=== PATIENT | male | born 1965 | race Caucasian/White ===

== ENCOUNTER 2021-05-25 09:49 | Emergency (ER) | payer OTHER, SELFPAY ==
[2021-05-25 10:27] LABS: Absolute Lymphocytes (CBC) 1.4 K/uL (0.7-4.9); Hematocrit 52.2 % (39.6-49.0); Lymphocytes % 12.3 % (15.3-44.8); RBC Red Blood Cell Count 5.72 M/uL (4.33-5.43)
[2021-05-25] MEDS ORDERED: MORPHINE 4 MG/ML SYR ONE (10:47)
[2021-05-25] MEDS ORDERED: ONDANSETRON 4 MG/2 ML VIAL ONE (10:47)
[2021-05-25 10:51] LABS: Magnesium 2.5 mg/dL (1.8-2.4); Potassium 4.2 mmol/L (3.5-5.1); Troponin High Sensitivity 7.2 pg/mL (<58.9)
--- NOTE | 2021-05-25 12:05 | RAD REPORT ---
EXAM DESCRIPTION: CTChest Abd Pelvis Wo Con - 05/25/2021 11:54 am CLINICAL HISTORY: chest pain, abd pain, back pain, HTN COMPARISON: No comparisons TECHNIQUE: CT of the chest, abdomen, and pelvis was performed. All CT scans are performed using dose optimization technique as appropriate and may include automated exposure control or mA/KV adjustment according to patient size. FINDINGS: Thorax: Chest Wall: No abnormal mass Lungs: Tiny ground-glass opacity in the left lower lobe of doubtful clinical significance. Small nodu lar focus in the left lower lobe measuring 14 millimeters. This is also doubtful acute clinical signi ficance. Pleura: No effusions or pneumothorax. Clara/Mediastinum: No lymphadenopathy. Mild circumferential thickening of the esophagus suggesting gas troesophageal reflux disease. Aorta/Pulmonary Arteries: Unremarkable Heart: Normal size. Abdomen/Pelvis: Liver: No acute abnormality or suspicious lesions. Biliary: No biliary ductal dilatation. Stomach: No significant focal abnormality. Duodenum: No significant focal abnormality. Pancreas: No significant abnormality. Spleen: No significant abnormality. Adrenal: No suspicious lesions. Kidney/ureter: No hydronephrosis. Nonobstructing stones in the right kidney. Too small to characteriz e and/or benign appearing renal lesions are noted. Renal sinus cysts is well. Retroperitoneum: No retroperitoneal adenopathy. Vascular: No aneurysm. Atherosclerosis Bowel: No significant focal abnormality. Normal appendix. Peritoneum: No ascites or free air. Small fat containing inguinal hernia. Bladder: Grossly unremarkable. Reproductive: No adnexal masses. Bones: No acute fracture. ACDF in the cervical spine. Sclerotic focus in the sacrum is likely a bone island. No other lesions are seen. Remote rib fractures. Other: n/a IMPRESSION: No acute findings within the chest, abdomen, or pelvis. Several incidental findings as n oted above. 14 mm right lower lobe pulmonary nodule of doubtful clinical significance. While highly likely benign , recommend six-month follow-up chest CT to document stability and/or resolution.
--- NOTE | 2021-05-25 15:53 | ER ---
Nurse's Notes [facility] Name: Glen Aguayo Age: 55 yrs Sex: Male : 1965 Arrival Date: 05/25/2021 Time: 09:49 Bed 23 Private MD: Diagnosis: Cramp and spasm Presentation: 05/25 09:53 Chief complaint: Patient states: pt reports chest pain, abdominal pain, bilateral arm mendes and leg pain, back pain x2 years and getting worse. Coronavirus screen: Vaccine status: Patient reports receiving the 1st dose of the Covid vaccine. Ebola Screen: Patient denies travel to an Ebola-affected area in the 21 days before illness onset. Initial Sepsis Screen: Does the patient meet any 2 criteria? RR > 20 per min. HR > 90 bpm. No. Patient's initial sepsis screen is negative. Does the patient have a suspected source of infection? No. Patient's initial sepsis screen is negative. Risk Assessment: Do you want to hurt yourself or someone else? Patient reports no desire to harm self or others. Onset of symptoms was 2020. 09:53 Method Of Arrival: Ambulatory mendes 09:53 Acuity: MARTINA 3 mendes Triage Assessment: 09:56 General: Appears uncomfortable, Behavior is calm, cooperative. mendes Historical: - Allergies: 10:48 Codeine; ab2 10:48 Iodine; ab2 10:48 PENICILLINS; ab2 - Home Meds: 10:42 hydrochlorothiazide 12.5 mg Oral cap 1 cap once daily [Active]; Ventolin HFA 90 ab2 mcg/actuation Nebulizer HFAA 1 puff every 4-6 hours [Active]; - PMHx: 10:42 Hypertensive disorder; Hypercholesterolemia; Chronic obstructive lung disease; ab2 - Immunization history:: Adult Immunizations up to date. - Social history:: Smoking status: Patient reports the use of cigarette tobacco products, smokes one-half pack cigarettes per day. - Family history:: not pertinent. - Hospitalizations: : No recent hospitalization is reported. Screenin:42 Abuse screen: Denies threats or abuse. Denies injuries from another. Nutritional ab2 screening: No deficits noted. Tuberculosis screening: No symptoms or risk factors identified. Fall Risk None identified. Assessment: 10:08 General: Appears in no apparent distress. uncomfortable, obese, Behavior is ab2 cooperative, anxious. Pain: Complains of pain in diaphragm and right lateral anterior chest Pain radiates to back, right hand, left hand, right foot and left foot Pain currently is 9 out of 10 on a pain scale. Quality of pain is described as sharp, shooting, Pain began years ago. Neuro: No deficits noted. Level of Consciousness is awake, alert, obeys commands, Oriented to person, place, time, situation, Appropriate for age Ribbon Cutter are equal bilaterally Moves all extremities. Gait is steady, Speech is normal, Facial symmetry appears normal. Cardiovascular: Reports chest pain, diaphoresis, Denies Heart tones S1 S2 present Chest pain began 2 years. Respiratory: Airway is patent Breath sounds are clear bilaterally. GI: No deficits noted. Abdomen is round obese, Reports upper abdominal pain, nausea, vomiting. : No deficits noted. No signs and/or symptoms were reported regarding the genitourinary system. EENT: No deficits noted. No signs and/or symptoms were reported regarding the EENT system. Derm: Skin is diaphoretic. Musculoskeletal: Reports pain in chest. 14:57 Reassessment: Patient appears in no apparent distress at this time. Patient states ab2 feeling better. Patient states symptoms have improved. 14:58 Reassessment: Awaiting second troponin result. ab2 Vital Signs: 09:53 BP 133 / 99; Pulse 102; Resp 22; Temp 97.6(T); Pulse Ox 98% ; Weight 74.84 kg; Height 5 mendes ft. 4 in. (162.56 cm); 10:49 BP 143 / 97; Pulse 97; Resp 20; Pulse Ox 99% on R/A; ab2 11:32 BP 164 / 103; Pulse 89; Resp 20; Pulse Ox 96% on R/A; ab2 12:12 BP 129 / 95; Pulse 83; Resp 18 S; Pulse Ox 95% on R/A; ab2 13:15 BP 134 / 73; Pulse 86; Resp 20; Pulse Ox 94% on R/A; ab2 14:15 BP 137 / 97; Pulse 84; Resp 17; Temp 98.4(O); Pulse Ox 94% on R/A; Pain 2/10; ab2 15:15 BP 116 / 70; Pulse 91; Resp 18; Pulse Ox 98% on R/A; ab2 16:12 BP 139 / 94; Pulse 84; Resp 17; Pulse Ox 95% on R/A; ab2 09:53 Body Mass Index 28.32 (74.84 kg, 162.56 cm) ED Course: 09:49 Patient arrived in ED. as 09:56 Triage completed. mendes 09:59 Bernardino Will MD is Attending Physician. rn 09:59 Ritesh Bundy is Primary Nurse. ab2 10:28 Initial lab(s) drawn, by mi, sent to lab. Inserted saline lock: 20 gauge in left kj1 antecubital area, using aseptic technique. Blood collected. 10:42 Arm band placed on left wrist. ab2 10:42 No provider procedures requiring assistance completed. Patient maintains SpO2 ab2 saturation greater than 95% on room air. 10:44 Patient has correct armband on for positive identification. Call light in reach. Side ab2 rails up X2. compliance monitor on. Pulse ox on. NIBP on. 11:54 Chest Abd Pelvis Wo Con In Process Unspecified. EDMS 12:03 SARS-COV-2 RT PCR Sent. ab2 12:03 COVID-19 SARS RT PCR (Document "Date of Onset" if Symptomatic) Sent. ab2 14:53 Troponin High Sensitivity Sent. ab2 16:23 IV discontinued, intact, bleeding controlled, No redness/swelling at site. Pressure ab2 dressing applied. Administered Medications: 10:49 Drug: morphine 4 mg Route: IVP; Site: left antecubital; ab2 14:54 Follow up: Response: No adverse reaction ab2 10:49 Drug: Zofran (Ondansetron) 4 mg Route: IVP; Site: left antecubital; ab2 14:54 Follow up: Response: No adverse reaction ab2 Outcome: 15:53 Discharge ordered by . rn 16:22 Discharged to home ambulatory. ab2 16:22 Condition: good 16:22 Discharge instructions given to patient, Instructed on discharge instructions, follow up and referral plans. medication usage, Demonstrated understanding of instructions, follow-up care, medications, Prescriptions given X 1. 16:23 Patient left the ED. ab2 Signatures: Dispatcher [employer] EDMS Trang Burden Roman, MD MD rn Jackson, Kandis kj1 Au-StagerPeri RN RN ha Bleininger, Alexis ab2
--- NOTE | 2021-05-25 15:53 | EDPHYS ---
Physician Documentation [facility] Name: Glen Aguayo Age: 55 yrs Sex: Male : 1965 Arrival Date: 05/25/2021 Time: 09:49 Bed 23 Private MD: ED Physician Bernardino Will HPI: 05/25 10:32 This 55 yrs old Male presents to ER via Ambulatory with complaints of Chest Pain back rn pain, muscle cramping. 10:32 The patient or guardian reports chest pain that is located primarily in the epigastric rn area, anterior chest wall. 10:32 Onset: A few days ago. The pain does not radiate. Associated signs and symptoms: rn Pertinent positives: abdominal pain, diaphoresis, lower extremity pain, vomiting, Pertinent negatives: shortness of breath, syncope. The chest pain is described as Cramping. Duration: The patient or guardian reports multiple episodes, that are intermittent. Modifying factors: The symptoms are alleviated by nothing. the symptoms are aggravated by nothing. Severity of pain: At its worst the pain was moderate in the emergency department the pain is unchanged. The patient has experienced similar episodes in the past. The patient has not recently seen a physician. Patient reports has been having similar issues for 2 years now but over the last few days has been having increased cramping of the chest and abdomen that radiates to the back. Reports also having cramping in extremities and hands. Has been told in the past that his potassium was low. Last night the pain got so bad that he was sweating and threw up 1 time. Currently points to epigastric region when asked where it hurts the most. Denies trauma. Denies hematemesis.. Historical: - Allergies: 10:48 Codeine; ab2 10:48 Iodine; ab2 10:48 PENICILLINS; ab2 - Home Meds: 10:42 hydrochlorothiazide 12.5 mg Oral cap 1 cap once daily [Active]; Ventolin HFA 90 ab2 mcg/actuation Nebulizer HFAA 1 puff every 4-6 hours [Active]; - PMHx: 10:42 Hypertensive disorder; Hypercholesterolemia; Chronic obstructive lung disease; ab2 - Immunization history:: Adult Immunizations up to date. - Social history:: Smoking status: Patient reports the use of cigarette tobacco products, smokes one-half pack cigarettes per day. - Family history:: not pertinent. - Hospitalizations: : No recent hospitalization is reported. ROS: 10:32 Constitutional: Negative for fever, chills, and weight loss, Eyes: Negative for injury, rn pain, redness, and discharge, Neck: Negative for injury, pain, and swelling, Cardiovascular: Negative for palpitations, and edema, Respiratory: Negative for shortness of breath, cough, wheezing, and pleuritic chest pain, Abdomen/GI: Negative for diarrhea, and constipation, Back: Negative for painall MS/Extremity: Negative for injury and deformity, Skin: Negative for injury, rash, and discoloration, Neuro: Negative for headache, weakness, numbness, tingling, and seizure. Exam: 10:32 Constitutional: This is a well developed, well nourished patient who is awake, alert, rn diaphoretic and appears uncomfortable/holding epigastric region Head/Face: Normocephalic, atraumatic. Eyes: Periorbital areas with no swelling, redness, or edema. Cardiovascular: Tachycardic, regular. No pulse deficits Respiratory: Mild tachypnea, speaking full sentences Abdomen/GI: Soft, mild epigastric tenderness without masses or rebound Skin: Warm, dry MS/ Extremity: Pulses equal, no cyanosis. Neuro: Awake and alert, GCS 15 Vital Signs: 09:53 BP 133 / 99; Pulse 102; Resp 22; Temp 97.6(T); Pulse Ox 98% ; Weight 74.84 kg; Height 5 mendes ft. 4 in. (162.56 cm); 10:49 BP 143 / 97; Pulse 97; Resp 20; Pulse Ox 99% on R/A; ab2 11:32 BP 164 / 103; Pulse 89; Resp 20; Pulse Ox 96% on R/A; ab2 12:12 BP 129 / 95; Pulse 83; Resp 18 S; Pulse Ox 95% on R/A; ab2 13:15 BP 134 / 73; Pulse 86; Resp 20; Pulse Ox 94% on R/A; ab2 14:15 BP 137 / 97; Pulse 84; Resp 17; Temp 98.4(O); Pulse Ox 94% on R/A; Pain 2/10; ab2 15:15 BP 116 / 70; Pulse 91; Resp 18; Pulse Ox 98% on R/A; ab2 16:12 BP 139 / 94; Pulse 84; Resp 17; Pulse Ox 95% on R/A; ab2 09:53 Body Mass Index 28.32 (74.84 kg, 162.56 cm) mendes MDM: 09:59 Patient medically screened. rn 15:52 Differential diagnosis: anxiety, coronary artery disease costochondritis, esophagitis, rn gastritis, pericarditis, pleurisy, pneumothorax, muscle spasm, electrolyte disorder. Data reviewed: vital signs, nurses notes, lab test result(s), EKG, radiologic studies, CT scan, and as a result, I will discharge patient. Counseling: I had a detailed discussion with the patient and/or guardian regarding: the historical points, exam findings, and any diagnostic results supporting the discharge/admit diagnosis, lab results, radiology results, the need for outpatient follow up, to return to the emergency department if symptoms worsen or persist or if there are any questions or concerns that arise at home. Response to treatment: the patient's symptoms have mildly improved after treatment, and as a result, I will discharge patient. Special discussion: I discussed with the patient/guardian in detail that at this point there is no indication for admission to the hospital. It is understood, however, that if the symptoms persist or worsen the patient needs to return immediately for re-evaluation. ED course: Troponin negative x2. EKG without ischemic findings. Patient states this has been going on for about 2 years, states cannot take Flexeril and only improves with Soma. States has had his heart checked and does not want to be admitted. Will discharge home as muscle spasm with a few Soma.. 05/25 10:06 Order name: CBC with Diff; Complete Time: 11:42 rn 05/25 10:06 Order name: Basic Metabolic Panel; Complete Time: 11:42 rn 05/25 10:06 Order name: Troponin High Sensitivity; Complete Time: 11:42 rn 05/25 10:06 Order name: Magnesium; Complete Time: 11:42 rn 05/25 11:57 Order name: COVID-19 SARS RT PCR (Document "Date of Onset" if Symptomatic) rn 05/25 11:58 Order name: SARS-COV-2 RT PCR; Complete Time: 13:46 EDOR 05/25 10:06 Order name: IV Start; Complete Time: 10:44 rn 05/25 10:06 Order name: EKG; Complete Time: 10:06 rn 05/25 10:06 Order name: EKG - Nurse/Tech; Complete Time: 10:44 rn 05/25 11:46 Order name: Chest Abd Pelvis Wo Con; Complete Time: 12:18 EDMS 05/25 14:34 Order name: Troponin High Sensitivity rn Administered Medications: 10:49 Drug: morphine 4 mg Route: IVP; Site: left antecubital; ab2 14:54 Follow up: Response: No adverse reaction ab2 10:49 Drug: Zofran (Ondansetron) 4 mg Route: IVP; Site: left antecubital; ab2 14:54 Follow up: Response: No adverse reaction ab2 Disposition Summary: 05/25/21 15:53 Discharge Ordered Location: Home rn Problem: an ongoing problem rn Symptoms: have improved rn Condition: Stable rn Diagnosis - Cramp and spasm rn Followup: rn - With: Private Physician - When: As needed - Reason: Recheck today's complaints, Re-evaluation by your physician Discharge Instructions: - Discharge Summary Sheet rn - Muscle Cramps and Spasms rn Forms: - Medication Reconciliation Form rn - Thank You Letter rn - 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 EDMS EDMS
[2021-05-25 20:31] VITALS: TEMP 98.4
[2021-05-25 20:33] VITALS: BP 139/94; O2SAT 95
== END 2021-05-25 16:23 | disposition home or self-care (01) ==
LOC: ER 09:49
DX: R25.2 Cramp and spasm (principal); E78.00 Pure hypercholesterolemia, unspecified; I10 Essential (primary) hypertension; F17.210 Nicotine dependence, cigarettes, uncomplicated; Z20.822 Contact with and (suspected) exposure to COVID-19; Z88.0 Allergy status to penicillin; Z88.5 Allergy status to narcotic agent; Z91.048 Other nonmedicinal substance allergy status
CPT/HCPCS: 93005; 85025; 80048; 36415; 83735; 84484 ×2; 71250; 74176; 96375; 96374; 99285; U0003; J2405